=== PATIENT | female | born 1960 | race Caucasian/White ===

== ENCOUNTER → 2018-06-27 | Outpatient (CLI) | payer OTHER ==
--- NOTE | 2018-07-01 09:51 | Diagnostic Imaging Report ---
Indication: Screening. The current study was also evaluated with a Computer Aided Detection (CAD) system. Comparison made with prior examination of 05/27/2012. 3-D tomosynthesis was also performed and reviewed. Findings: The fibroglandular tissue is heterogeneously dense bilaterally. There is a new small cluster of calcifications in the central aspect of the left breast. There is no dominant mass or spiculated lesion. Skin, nipples and axilla are unremarkable. Impression: Category 0, further imaging needed. New cluster of microcalcifications in the left breast. Further evaluation with magnification compression views recommended. ACR BI-RADS Category 0: Incomplete. (Needs additional imaging evaluation). Result letter will be mailed to the patient. Note: At least 10% of breast cancer is not imaged by mammography. Dictated by: Dictated on workstation # [id number]
== END ==
LOC: RAD 10:03
PROVIDERS: ATTEND Nurse Practitioner Family
DX: Z12.31 Encounter for screening mammogram for malignant neoplasm of breast (principal)
CPT/HCPCS: 77067

== ENCOUNTER → 2018-07-11 | Outpatient (CLI) | payer OTHER ==
--- NOTE | 2018-07-11 12:55 | Diagnostic Imaging Report ---
Indication: Left breast calcification. Patient presents for additional views. Correlation is made with recent screening study from 06/27/2018 and 05/27/2012. 2-D and 3-D unilateral left diagnostic mammography was performed including magnification CC and ML views as well as conventional and 90 degree lateral view. Clustered microcalcifications in the central left breast just lateral to the nipple line are seen. These appear to be in the far superior aspect of the left breast on the lateral view. These are round and appear benign. No associated soft tissue mass is seen. Impression: BI-RADS 2 Benign calcifications in the left breast. Patient may return to routine annual screening mammography. ACR BI-RADS Category 2: Benign findings. Result letter will be mailed to the patient. Note: At least 10% of breast cancer is not imaged by mammography. Dictated by: Dictated on workstation # [id number]
== END ==
LOC: RAD 12:13
PROVIDERS: ATTEND Nurse Practitioner Family
DX: R92.1 Mammographic calcification found on diagnostic imaging of breast (principal)